=== PATIENT | male | born 2000 | race Caucasian/White ===

== ENCOUNTER 2022-12-27 11:00 | Outpatient (CLI) | payer OTHER ==
[2022-12-27 22:02] LABS: CHLAMYDIA TRACHOMATIS DNA NEGATIVE (NEGATIVE); NEISSERIA GONORRHOEAE DNA NEGATIVE (NEGATIVE); TRICHOMONAS VAGINALIS DNA NEGATIVE (NEGATIVE)
== END 2022-12-27 11:15 | disposition home or self-care (01) ==
LOC: LAB.N 11:00
PROVIDERS: ATTEND Registered Nurse
DX: R82.79 Other abnormal findings on microbiological examination of urine (principal); R53.81 Other malaise; R53.83 Other fatigue
CPT/HCPCS: 87086; 87491; 87591; 87661